=== PATIENT | female | born 1980 | race African-American/Black ===

== ENCOUNTER 2017-12-13 17:20 | Emergency (ER) | payer OTHER ==
[~2017-12-13] VITALS: Ht 162.6 cm; Wt 86.2 kg
[~2017-12-13 17:20] MED LIST: AMOXIL500 MG PO; FERRALET 901 TAB PO; IBUPROFEN800 MG PO; MACROBID100 MG PO; NITROFURANTOIN100 M4 PO; ONDANSETRON8 M1 PO; PERCOCET 325 MG1 TA2 PO; TRANDATE-NORMO100 MG PO; [UNRECOGNIZED DRUG - OTHER] ID
--- NOTE | 2017-12-13 18:18 | ED THROAT/DENTAL COMPLAINT ---
History of Present Illness General Chief Complaint: Sore Throat, Dental Pain Stated Complaint: SORE THROAT Source: patient Exam Limitations: no limitations Vital Signs & Intake/Output Vital Signs & Intake/Output Vital Signs Date Time Temp Pulse Resp B/P B/P Pulse O2 O2 Flow FiO2 Mean Ox Delivery Rate 12/13 1933 99.4 93 18 152/92 97 12/13 1900 96 Room Air 12/13 1731 99.3 95 18 143/93 95 Room Air Allergies Coded Allergies: NO KNOWN ALLERGIES (02/21/12) Triage Note: C/O FEELING SICK FOR A MONTH, NOW HOARSE VOICE AND INTERMITTENT FEVERS. FEELS ASTHMA HAS BEEN WORSENING, TAKING BREATHING TREATMENTS WITH SLIGHT RELIEF. C/O RIGHT EAR AND THROAT PAIN. +N/V/-D. THERAFLU AND ROBITUSSIN W/O RELIEF. SORE THROAT. THROAT SWABS AND FLU SWAB SENT TO LAB Triage Nurses Notes Reviewed? yes Onset: Gradual Duration: day(s): Timing: recent history Injury Environment: home Severity: moderate : No Patient currently breastfeeds: No HPI: 36YO FEMALE with hx of asthma presents to ED complaining of cough and dysypnea x 2 weeks and sore throat 3 days. Patient also reports fevers, chills, bodyaches , one episode of vomiting. Patient is present with her 3 children who are ill with similar symptoms. Patient reports intermittent dyspnea, she has been using albuterol inhaler. Patient reports left sided lateral chest wall pain, worse with inspiration and coughing. Patient denies presyncope, abdominal pain, skin rash, diarrhea, hemoptysis. (Mari LOPEZ,Katharine Lee) Reconcile Medications Albuterol Sulfate (Proventil Hfa) 90 MCG HFA.AER.AD 2 PUF INH Q4 wheezing Amoxicillin (Amoxil) 500 MG CAP 1 TAB PO TID INFECTION Ibuprofen 800 MG TABLET 1 TAB PO TID PRN PAIN Ibuprofen 600 MG TABLET 1 TAB PO Q6PRN PRN pain with food Ibuprofen 800 MG TABLET 800 MG PO Q6P PRN PAIN SCALE 4-6 Ipratropium/Albuterol Sulfate (Iprat-Albut 0.5-3(2.5) MG/3 Ml) 0.5 MG-3 MG (2.5 MG BASE)/3 ML AMPUL.NEB 1 UNIT INH/RAVI Q6 PRN shortness of breath IRON CARB,GL/FA/B12/C/DOCUSATE (Ferralet 90 Tablet) 90 MG-1 MG-12 MCG-120 MG-50 MG TABLET 1 TAB PO DAILY VITAMIN (Reported) Labetalol (Trandate-Normodyne 100MG Tab) 100 MG TABLET 200 MG PO BID HIGH CHOLESTROL OXYCODONE HCL/ACETAMINOPHEN (Percocet 5-325 MG Tablet) 325 MG/5 MG TAB 1 TAB PO Q4P PRN PAIN SCALE 7-8 Penicillin V Potassium 500 MG TABLET 1 TAB PO BID strep PNV38/IRON CBN&GLUC/FA/DSS/DHA (Citranatal Assure Combo Pack) 35 MG IRON-1 MG-50 MG-300 MG COMBO..PKG 1 LUDWIN ID BLOOD SUGAR (Reported) (Cruz Manning DO) Past History Travel History Traveled to [place] past 21 day No Medical History Any Pertinent Medical History? see below for history Neurological: NONE EENT: NONE Cardiovascular: hypertension, HEART MURMUR Respiratory: asthma Gastrointestinal: NONE Hepatic: NONE Renal: NONE Musculoskeletal: NONE Psychiatric: NONE Endocrine: NONE Blood Disorders: NONE Tetanus Vaccine: 03/28/13 Surgical History Surgical History: non-contributory Psychosocial History What is your primary language Mongolian Tobacco Use: Current Daily Use Daily Tobacco Use Amount/Type: => 5 Cigarettes daily Family History Hx Contributory? No (Katharine Rice) Review of Systems Review of Systems Constitutional: Reports: see HPI. EENTM: Reports: see HPI. Respiratory: Reports: see HPI. Cardiovascular: Reports: see HPI. GI: Reports: no symptoms. Genitourinary: Reports: no symptoms. Musculoskeletal: Reports: see HPI. Skin: Reports: no symptoms. Neurological/Psychological: Reports: no symptoms. Hematologic/Endocrine: Reports: no symptoms. Immunologic/Allergic: Reports: no symptoms. All Other Systems: Reviewed and Negative (Katharine Rice) Physical Exam Physical Exam General Appearance: well developed/nourished, no apparent distress, alert, awake Head: atraumatic, normal appearance Eyes: Bilateral: normal appearance, PERRL, EOMI. Ears: Bilateral: canal normal, Tympanic normal. Nose: normal inspection Mouth/Throat: normal mouth inspection, pharyngeal erythema, tonsillar swelling without exudate Neck: normal inspection, supple, full range of motion Cardiovascular/Respiratory: normal breath sounds, regular rate/rhythm, no respiratory distress Back: normal inspection, normal range of motion Neurologic/Psych: awake, alert, oriented x 3 Skin: intact, normal color, warm/dry Core Measures ACS in differential dx? No Sepsis Present: No Sepsis Focused Exam Completed? No (Mari LOPEZ,Katharine Lee) Progress Differential Diagnosis: epiglottitis, gordon-tonsillar abscess, stomatitis/ gingivitis, strep pharyngitis, costocondritis Plan of Care: Orders Procedure Date/time Status EKG 12/13 1849 Active RAPID VIRAL INFLUENZA A 12/13 1734 Complete THROAT CULTURE W/QUICK STREP 12/13 1734 Complete Microbiology 12/13 1736 NASOPHARYN: Influenza Virus A & B Rapid Smear - COMP Patient has lateral chest wall pain likely related to her upper respiratory tract illness and possible asthma exacerbation. Patient's EKG is in sinus rhythm without acute changes. Patient was offered chest x-ray and blood work for further assessment however she is declining at this time, she was is to go home with her sick children. The patient was treated with antibiotics for strep throat. She was given refills for albuterol and nebulizer treatments at home. The patient is nontoxic appearing, no acute distress, vital signs are stable. She will follow up with primary care physician and return with worsening symptoms or other concerns. The patient is in agreement with the plan of care. The patient was discussed with Dr. Manning who agrees with this plan. Initial ED EKG: sinus rhythm @92bpm, nonspecific ST changes Prior EKG: changed (08/04/14 - subtle changes) (Mari LOPEZ,Katharine Lee) Departure Departure Disposition: HOME OR SELF CARE Condition: Stable Clinical Impression Primary Impression: Strep throat Referrals: Shorty Cole APRN (PCP/Family) Additional Instructions: Begin antibiotic today, take full course of antibiotics. Follow-up with your primary care physician. Increase your fluids and rest. Use albuterol inhaler and nebulizer as needed for cough and wheezing. Return to the emergency room with any worsening symptoms or other concerns. Please note that there might be incidental findings in your evaluation that are unrelated to the current emergency department visit. Please notify your primary care doctor about this emergency department visit in order to obtain and review all of the testing performed so that these incidental findings can be monitored as needed. If you had an x-ray performed, please understand that some fractures may not be seen on the initial set of x-rays. If your symptoms persist you might need a repeat set of x-rays to check for such a fracture. If you had a laceration evaluated, please understand that foreign bodies such as glass or wood may not be visible to the naked eye or on plain x-rays. If the wound becomes red, swollen, increasingly more painful or if there is any drainage from the wound, please have it reevaluated by a physician for the possibility of a retained foreign body. If you're unable to follow up as outlined in the discharge instructions please return to the emergency department. Thank you for choosing the [facility] Emergency Department for your care. It was a pleasure to serve you today. Cruz Kapoor M.D. [facility] Departure Forms: Customer Survey General Discharge Information Prescriptions: Current Visit Scripts Albuterol Sulfate (Proventil Hfa) 2 PUF INH Q4 #1 INHAL Ipratropium/Albuterol Sulfate (Iprat-Albut 0.5-3(2.5) MG/3 Ml) 1 UNIT INH/RAVI Q6 PRN shortness of breath #10 Vial Penicillin V Potassium 1 TAB PO BID #20 TAB (Mari LOPEZ,Katharine Lee) PA/SUGAR REPROCESS OPERATOR HEAD Co-Sign Statement Statement: ED Attending supervision documentation- [] I saw and evaluated the patient. I have also reviewed all the pertinent lab results and diagnostic results. I agree with the findings and the plan of care as documented in the PA's/SUGAR REPROCESS OPERATOR HEAD's documentation. [X] I have reviewed the ED Record and agree with the PA's/SUGAR REPROCESS OPERATOR HEAD's documentation. [] Additions or exceptions (if any) to the PAs/SUGAR REPROCESS OPERATOR HEAD's note and plan are summarized below: [] (Cruz Manning DO
[2017-12-13] MEDS ORDERED: IPRAT-ALBUT 0.5-3 ML INH/SOL (18:30)
[2017-12-13] MEDS ORDERED: PROVENTIL HFA6.7 GM INH (18:30)
[2017-12-13] MEDS ORDERED: PENICILLIN V P500 M1 PO (18:30)
[2017-12-13 19:33] VITALS: BP 152/92
[2017-12-16] MEDS ORDERED: IBUPROFEN600 M1 PO (08:52)
== END 2017-12-13 19:58 ==
LOC: ERH 17:20
DX: J02.0 Streptococcal pharyngitis (principal); F17.200 Nicotine dependence, unspecified, uncomplicated
CPT/HCPCS: 87804; 87804-59; 93005; 93010

== ENCOUNTER 2017-12-15 16:38 | Emergency (ER) | payer OTHER ==
[~2017-12-15] VITALS: Ht 162.6 cm; Wt 90.7 kg
[~2017-12-15 16:38] MED LIST changes: +IPRAT-ALBUT 0.5-3 ML INH/SOL; +PENICILLIN V P500 M1 PO; +PROVENTIL HFA6.7 GM INH
--- NOTE | 2017-12-15 17:52 | RADIOLOGY REPORT ---
EXAMINATION: XR ANKLE, RIGHT CLINICAL INFORMATION: Pain and swelling. COMPARISON: None TECHNIQUE: AP, lateral, and mortise views of the right ankle. FINDINGS: There is an oblique mildly displaced fracture of the lateral malleolus. The talus is subluxed laterally with widening of the ankle mortise medially. No fracture of the tibia. There is a plantar calcaneal spur. IMPRESSION: Lateral malleolar fracture.
--- NOTE | 2017-12-15 18:35 | ED ANKLE/FOOT INJURY COMPLAINT ---
History of Present Illness General Chief Complaint: Foot or Ankle Injury Stated Complaint: BIBA FOR R ANKLE FX, SEEN AT [place] THIS AM Source: patient, old records Exam Limitations: no limitations Vital Signs & Intake/Output Vital Signs & Intake/Output Vital Signs Date Time Temp Pulse Resp B/P B/P Pulse O2 O2 Flow FiO2 Mean Ox Delivery Rate 12/15 1955 97.5 98 16 140/72 95 Room Air 12/15 1903 Room Air 12/15 1655 98.0 102 18 127/90 97 Room Air Room Air Allergies Coded Allergies: NO KNOWN ALLERGIES (02/21/12) Reconcile Medications Albuterol Sulfate (Proventil Hfa) 90 MCG HFA.AER.AD 2 PUF INH Q4 wheezing Amoxicillin (Amoxil) 500 MG CAP 1 TAB PO TID INFECTION Ibuprofen 800 MG TABLET 1 TAB PO TID PRN PAIN Ibuprofen 800 MG TABLET 800 MG PO Q6P PRN PAIN SCALE 4-6 Ipratropium/Albuterol Sulfate (Iprat-Albut 0.5-3(2.5) MG/3 Ml) 0.5 MG-3 MG (2.5 MG BASE)/3 ML AMPUL.NEB 1 UNIT INH/RAVI Q6 PRN shortness of breath IRON CARB,GL/FA/B12/C/DOCUSATE (Ferralet 90 Tablet) 90 MG-1 MG-12 MCG-120 MG-50 MG TABLET 1 TAB PO DAILY VITAMIN (Reported) Labetalol (Trandate-Normodyne 100MG Tab) 100 MG TABLET 200 MG PO BID HIGH CHOLESTROL OXYCODONE HCL/ACETAMINOPHEN (Percocet 5-325 MG Tablet) 325 MG/5 MG TAB 1 TAB PO Q4P PRN PAIN SCALE 7-8 Penicillin V Potassium 500 MG TABLET 1 TAB PO BID strep PNV38/IRON CBN&GLUC/FA/DSS/DHA (Citranatal Assure Combo Pack) 35 MG IRON-1 MG-50 MG-300 MG COMBO..PKG 1 LUDWIN ID BLOOD SUGAR (Reported) Triage Note: PT TO ED S/P SLIP AND FALL IN BATHROOM TODAY, WENT TO [place] AND TOLD "I FRACTURED MY RIGHT ANKLE, BUT I LEFT AMA". LAST MENSES: 11/18/17 Triage Nurses Notes Reviewed? yes Occurred: this morning Duration: day(s): (1), constant Timing: recent history Severity: moderate : No Patient currently breastfeeds: No HPI: 36-year-old female presents to the ER brought in by a once complaining of right lateral ankle pain since this morning when she twisted and inverted her foot. She went to [place] however after having an x-ray and being told that her ankle was fractured she left AGAINST MEDICAL ADVICE. She denies any other injury there is no head strike no loss of consciousness no neck or back pain no hip knee or other leg injury. She denies any left leg pain. Past History Travel History Traveled to [place] past 21 day No Medical History Any Pertinent Medical History? 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 No Review of Systems Review of Systems Constitutional: Reports: see HPI. Comments Review of systems: See HPI, All other systems negative. Constitutional, no chills no fever HEENT: no sore throat no congestion Cardiovascular: No chest pain Skin: no rashes, no change in skin Respiratory: no cough GI: No nausea no vomiting, no diarrhea : No dysuria No hematuria, no frequency Muscle skeletal: joint pain, no back pain Neurologic: no headache Heme/endocrine: No bruising Immunology: No lymphadenopathy Physical Exam Physical Exam General Appearance: well developed/nourished, alert, awake Leg/Knee/Thigh Left: normal range of motion Comments: Well-developed well-nourished patient in no apparent distress. HEENT: Atraumatic, extraocular motion intact Neck: Supple, FROM Back: FROM Respiratory:No respiratory distress. Patient speaking in full complete sentences. Breath sounds clear to auscultation bilaterally: NO W/R/R Upper Extremities: full range of motion Hip/Pelvis: Atraumatic/Stable. FROM. No pain with pelvic compression Knee: Atraumatic/stable. FROM. No joint swelling, no effusion. No laxity. Negative pepe/anterior drawer test. No pain with ROM Leg: Atraumatic. Nontender. No edema, 5 out of 5 strength in the lower extremity, normal dorsiflexion of great toe bilaterally, gross sensation is intact, patellar tendon reflex 2+ bilaterally. Ankle/Foot: Ankle with moderate tenderness laterally over the lateral ligaments. No bony tenderness. No medial tenderness. Range of motion is limited due to pain. No instability is noted. Skin is intact, No swelling, No ecchymosis noted. The foot is neurovascularly intact with sensation and motor grossly intact. There is no foot tenderness or fifth metatarsal tenderness. Able to move all toes. Palpable and intact achilles tendon. There is no proximal tib/fib tenderness Pulses: Normal/equal DP/PT pulses bilaterally. Brisk cap refill Neuro: awake, alert, and oriented to person, place and time. There were no obvious focal neurologic abnormalities. Skin: Warm & dry;No appreciable rash on exposed skin Psych: Mood affect normal, normal memory normal judgment. Progress Differential Diagnosis: fracture, dislocation, sprain, contusion Plan of Care: Orders Procedure Date/time Status Durable Medical Equipment 12/15 1845 Active I discussed with the patient at length all of their results. I had an extensive conversation regarding need for close follow up with orthopedist as well as their primary care physician this week as well as return precautions. I answered all of their questions, they feel comfortable with the plan and follow- up care. Diagnostic Imaging: Viewed by Me: Radiology Read. Discussed w/RAD: Radiology Read. Radiology Impression: PATIENT: KAREEN PATEL PRESENT AGE: 36 PATIENT ACCOUNT NO: [id number] : 82 LOCATION: [facility] ORDERING PHYSICIAN: Cruz Manning DO (TBS) SERVICE DATE: 12/15/17 EXAM TYPE: RAD - XRY-ANKLE 3 OR MORE VIEWS R EXAMINATION: XR ANKLE, RIGHT CLINICAL INFORMATION: Pain and swelling. COMPARISON: None TECHNIQUE: AP, lateral, and mortise views of the right ankle. FINDINGS: There is an oblique mildly displaced fracture of the lateral malleolus. The talus is subluxed laterally with widening of the ankle mortise medially. No fracture of the tibia. There is a plantar calcaneal spur. IMPRESSION: Lateral malleolar fracture. DICTATED BY: Wang Miles MD DATE/TIME DICTATED:12/15/171746 ALLERGY SPECIALIST:CARLYLE DATE/TIME TRANSCRIBED:1746 CONFIDENTIAL, DO NOT COPY WITHOUT APPROPRIATE AUTHORIZATION. < Electronically signed in Other Vendor System> SIGNED BY: Wang Miles MD 1751 Departure Departure Disposition: HOME OR SELF CARE Condition: Stable Clinical Impression Primary Impression: Ankle fracture Referrals: Shorty Cole APRN (PCP/Family) Haley RUDOLPH,Miguel Additional Instructions: rest, ice tylenol or motrin for pain. follow up with orthopedist dr arreola on monday. crutches when ambulatory. keep splint on at all times until seen by orthopedist. Departure Forms: Customer Survey General Discharge Information Prescriptions: Current Visit Scripts Ibuprofen 1 TAB PO TID PRN PAIN #30 TAB Procedures Splinting Manual Alignment Performed: No Hand-Made Type: orthoglass Splint: posterior walking Splint Applied By: splint applied by me Pre-Proc Neuro Vasc Exam: normal Post-Proc Neuro Vasc Exam: normal Procedures Splinting Manual Alignment Performed: No Hand-Made Type: orthoglass Splint: posterior walking Splint Applied By: splint applied by me Pre-Proc Neuro Vasc Exam: normal Post-Proc Neuro Vasc Exam: normal
[2017-12-15 19:56] VITALS: BP 140/72
[2017-12-15] MEDS ORDERED: IBUPROFEN800 M1 PO (20:09)
[2017-12-16] MEDS ORDERED: IBUPROFEN600 M1 PO (08:52)
== END 2017-12-15 20:35 ==
LOC: ERH 16:38
DX: S82.61XA Displaced fracture of lateral malleolus of right fibula, initial encounter for closed fracture (principal); X58.XXXA Exposure to other specified factors, initial encounter; Y92.9 Unspecified place or not applicable; Y93.9 Activity, unspecified
CPT/HCPCS: 73610-RT